=== PATIENT | female | born 2000 | race Asian ===

== ENCOUNTER 2019-12-21 20:15 | Emergency (ER) | payer OTHER ==
[2019-12-21 20:32] LABS: ABS Basophils 0.1 10^3/ul (0-0.2); ABS Eosinophils 0.1 10^3/ul (0-0.6); ABS Lymphocytes 1.6 10^3/ul (1.0-4.8); ABS Monocytes 0.3 10^3/ul (0-0.8); ABS Neutrophils 4.1 10^3/ul (1.5-7.7); Eosinophil % 1.3 %; Hematocrit 41 % (35-47); Lymphocyte % 26.2 %; Mean Corpuscular HGB Conc 34 g/dL (31-36); Mean Corpuscular Hemoglobin 30 pg (27-31); Mean Corpuscular Volume 88 fL (80-97); Nucleated Red Blood Cells % 0.1; Platelet Count 246 10^3/uL (150-450); Red Blood Count 4.68 10^6 /uL (3.70-4.87); Red Cell Distribution Width 12 % (10-15); White Blood Count 6.2 10^3/uL (3.5-10.8)
[2019-12-21 20:42] LABS: INR 0.98 (0.82-1.09)
[2019-12-21 20:52] LABS: Albumin 4.5 g/dL (3.2-5.2); Albumin/Globulin Ratio 1.7 (1-3); BUN/Creatinine Ratio 18.8 (8-20); Calcium 9.1 mg/dL (8.6-10.3); EGFR African American 143.1 (>60); EGFR Non-African American 118.3 (>60); Globulin 2.6 g/dL (2-4); Total Bilirubin 0.4 mg/dL (0.2-1.0); Total Protein 7.1 g/dL (6.4-8.9)
[2019-12-21 20:53] LABS: Potassium 3.9 mmol/L (3.5-5.0)
--- NOTE | 2019-12-21 22:33 | ED ---
HPI Chest Pain - HPI Summary HPI Summary: The patient is a 19 y/o female presenting to [facility] with a chief complaint of mid -sternal chest pain for the last two months with worsening in the last week. She reports that when the pain began two months ago, she would experience it 2- 3 times a week, but for the last week she has been experiencing it every day. The pain lasts for 30 minutes to an hour at a time, and is usually dull but is intermittently sharp. She denies any fevers, shortness of breath, cough, nausea , vomiting, diarrhea, or abdominal pain. Symptoms are currently rated 0/10 in severity. She has taken Famotidine to no relief. She was in [facility] recently but has not been in contact with anyone with positive coronavirus. No PMHx. LNMP : 12/08/2019. Nonsmoker, no EtOH, no substance use. - History of Current Complaint Chief Complaint: EDChestWallPain Time Seen by Provider: 12/21/19 22:00 Hx Obtained From: Patient Onset/Duration: Started Weeks Ago, Still Present, Worse Since - in the last week Timing: Intermittent, Lasting Minutes Initial Severity: Moderate Current Severity: None Pain Intensity: 0 Pain Scale Used: 0-10 Numeric Chest Pain Location: Mid Sternal Chest Pain Radiates: No Character: Dull/Aching, Sharp/Stabbing Alleviating Factor(s): Nothing Associated Signs and Symptoms: Positive: Chest Pain. Negative: Shortness of Breath, Fever, Nausea, Cough, Abdominal Pain, Vomiting, Other: - diarrhea, - Allergy/Home Medications Allergies/Adverse Reactions: Allergies Allergy/AdvReac Type Severity Reaction Status Date / Time No Known Allergies Allergy Verified 12/21/19 20:24 Home Medications: Home Medications Famotidine [Acid Controller] 20 mg PO DAILY 12/21/19 [History Confirmed 12/21/19 ] PMH/Surg Hx/FS Hx/Imm Hx Endocrine/Hematology History: Denies: Hx Diabetes Respiratory History: Denies: Hx Asthma - Surgical History Surgical History: None Surgery Procedure, Year, and Place: none Infectious Disease History: No Infectious Disease History: Reports: Traveled Outside the [place] in Last 30 Days - Family History Known Family History: Negative: Cardiac Disease, Hypertension, Diabetes - Social History Alcohol Use: None Hx Substance Use: No Substance Use Type: Reports: None Hx Tobacco Use: No Smoking Status (MU): Never Smoked Tobacco - Additional Comments History Additional Comments: no past medical history Review of Systems - ROS Summary Review of Systems Summary: Home Medications Medication Instructions Recorded Confirmed Type Famotidine [Acid Controller] 20 mg PO DAILY 12/21/19 12/21/19 History Negative: Fever Positive: Chest Pain Negative: Shortness Of Breath, Cough Negative: Abdominal Pain, Vomiting, Diarrhea, Nausea All Other Systems Reviewed And Are Negative: Yes Physical Exam - Summary Physical Exam Summary: General: Well-developed, Well-nourished female. No acute distress. HEENT: Normocephalic, Atraumatic. Eyes: Conjuctiva normal, PERRL. Oropharynx: Clear, mucous membranes moist, (-) exudates. Neck: Soft, FROM, (-) lymphadenopathy, (-) thyromegaly, (-) JVD. Cardiovascular: Normal sinus rhythm, (-) murmur. Lungs: Clear to auscultation bilaterally (-) wheezes, (-) rales, (-) rhonchi. Abdomen: Soft, non-tender, non-distended, (-) organomegaly, normal bowel sounds. Back: (-) CVA tenderness Extremities: No edema. Skin: Warm, dry, (-) rash. Neuro: Alert and oriented x3, moves all extremities equally. No ataxia. No gait disturbance. No sensory deficit. No amnesia. Psychiatric: Mildly anxious appearing, affect normal. Triage Information Reviewed: Yes Vital Signs On Initial Exam: Initial Vitals Temp Pulse Resp BP Pulse Ox 99.2 F 88 15 125/76 98 12/21/19 20:23 12/21/19 20:23 12/21/19 20:23 12/21/19 20:23 12/21/19 20:23 Vital Signs Reviewed: Yes Procedures - Sedation Patient Received Moderate/Deep Sedation with Procedure: No Diagnostics - Vital Signs Vital Signs Temp Pulse Resp BP Pulse Ox 12/21/19 20: 99.2 F 88 15 125/76 98 - Laboratory Lab Results: Lab Results 12/21/19 12/21/19 12/21/19 Range/Units 20:20 20:20 20:20 WBC 6.2 (3.5-10.8) 10^3/uL RBC 4.68 (3.70-4.87) 10^6 /uL Hgb 14.0 (12.0-16.0) g/dL Hct 41 (35-47) % MCV 88 (80-97) fL MCH 30 (27-31) pg MCHC 34 (31-36) g/dL RDW 12 (10-15) % Plt Count 246 (150-450) 10^3/uL MPV 8.0 (7.4-10.4) fL Neut % (Auto) 66.6 % Lymph % (Auto) 26.2 % Jenkins % (Auto) 4.7 % Eos % (Auto) 1.3 % Baso % (Auto) 1.2 % Absolute Neuts (auto) 4.1 (1.5-7.7) 10^3/ul Absolute Lymphs (auto) 1.6 (1.0-4.8) 10^3/ul Absolute Monos (auto) 0.3 (0-0.8) 10^3/ul Absolute Eos (auto) 0.1 (0-0.6) 10^3/ul Absolute Basos (auto) 0.1 (0-0.2) 10^3/ul Absolute Nucleated RBC 0.0 10^3/ul Nucleated RBC % 0.1 INR (Anticoag Therapy) 0.98 (0.82-1.09) Sodium 138 (135-145) mmol/L Potassium 3.9 (3.5-5.0) mmol/L Chloride 104 (101-111) mmol/L Carbon Dioxide 26 (22-32) mmol/L Anion Gap 8 (2-11) mmol/L BUN 12 (6-24) mg/dL Creatinine 0.64 (0.51-0.95) mg/dL Est GFR ( Amer) 143.1 (>60) Est GFR (Non-Af Amer) 118.3 (>60) BUN/Creatinine Ratio 18.8 (8-20) Glucose 111 H (70-100) mg/dL Calcium 9.1 (8.6-10.3) mg/dL Total Bilirubin 0.40 (0.2-1.0) mg/dL AST 18 (13-39) U/L ALT 13 (7-52) U/L Alkaline Phosphatase 64 (34-104) U/L Troponin I 0.00 (<0.03) ng/mL Total Protein 7.1 (6.4-8.9) g/dL Albumin 4.5 (3.2-5.2) g/dL Globulin 2.6 (2-4) g/dL Albumin/Globulin Ratio 1.7 (1-3) Result Diagrams: 12/21/19 20:20 12/21/19 20:20 Lab Statement: Any lab studies that have been ordered have been reviewed, and results considered in the medical decision making process. - Radiology CXR Radiology Interpretation Completed By: ED Physician Summary of Radiographic Findings: No infiltrate. No pleural effusion. ED physician has reviewed and interpreted this report. Pending official read. - EKG 2015 Cardiac Rate: NL - 90 BPM EKG Rhythm: Sinus Rhythm Summary of EKG Findings: EKG at reveals normal sinus rhythm with rate of 90 BPM , no acute changes, no ischemic changes, no STEMI. This EKG was reviewed and interpreted by Dr. Gonzales. Re-Evaluation - Re-Evaluation First Eval Re-Evaluation Time: 23:30 Comment: I have discussed results with the patient. She is afebrile. Discussed symptoms that warrant immediate return to ED. Chest Pain Course/Dx - Diagnoses Provider Diagnoses: Chest pain Discharge ED - Sign-Out/Discharge Documenting (check all that apply): Patient Departure - Patient will be discharged home. - Discharge Plan Condition: Stable Disposition: HOME Patient Education Materials: Chest Pain (ED) Referrals: [facility] [place] [Provider Group] - 3 Days Additional Instructions: Please follow up with your primary care physician within three days. Please return to ED for any new or worsening symptoms. - Attestation Statements Document Initiated by Scribe: Yes Documenting Scribe: Julisa Payne Provider For Whom Scribe is Documenting (Include Credential): Dr. Kenna Gonzales MD Scribe Attestation: Julisa Dasilva, scribed for Dr. Kenna Gonzales MD on 12/22/19 at 0048. Status of Scribe Document: Ready
[2019-12-21 23:58] VITALS: BP 107/64
== END 2019-12-21 23:57 | disposition home or self-care (01) ==
LOC: ED 20:15
DX: R07.89 Other chest pain (principal)
CPT/HCPCS: 36415; 71045; 80053; 84484; 85025; 85610; 93005; 99282